=== PATIENT | female | born 1930 | race Caucasian/White ===

== ENCOUNTER 2016-09-17 08:39 | Outpatient (CLI) | payer MEDICARE, BC ==
[2015-05-13 10:57] VITALS: BMI 25.6
[~2016-09-17 08:39] MED LIST: AMBIEN5 MG PO; ATIVAN0.5 MG PO; CARDIZEM SR60 MG PO; ELIQUIS5 MG PO; Imdur PO; K-DUR20 MEQ PO; LANOXIN125 MCG PO; LASIX20 MG PO; PLAVIX75 MG PO; TOPROL XL25 MG PO
== END 2016-09-17 14:22 ==
LOC: D.MAMMO 08:39
DX: Z12.31 Encounter for screening mammogram for malignant neoplasm of breast (principal)

== ENCOUNTER 2016-11-16 20:02 | Emergency (ER) | payer MEDICARE, BC ==
[2015-05-13 10:57] VITALS: BMI 25.6
== END 2016-11-16 21:38 | disposition home or self-care (01) ==
LOC: D.ER 20:02
DX: S93.402A Sprain of unspecified ligament of left ankle, initial encounter (principal); W19.XXXA Unspecified fall, initial encounter; Y93.89 Activity, other specified; Y92.89 Other specified places as the place of occurrence of the external cause; I10 Essential (primary) hypertension; Z99.81 Dependence on supplemental oxygen

== ENCOUNTER → 2018-08-31 21:23 | Outpatient (CLI) | payer MEDICARE, BC ==
[2015-05-13 10:57] VITALS: BMI 25.6
== END | disposition home or self-care (01) ==
LOC: D.LABREF 21:23
PROVIDERS: ATTEND Urology
DX: R31.9 Hematuria, unspecified (principal); D72.829 Elevated white blood cell count, unspecified

== ENCOUNTER → 2018-09-16 18:53 | Outpatient (CLI) | payer MEDICARE, BC ==
[2015-05-13 10:57] VITALS: BMI 25.6
== END | disposition home or self-care (01) ==
LOC: D.LABREF 18:53
PROVIDERS: ATTEND Urology
DX: D72.829 Elevated white blood cell count, unspecified (principal); R31.9 Hematuria, unspecified

== ENCOUNTER → 2018-10-12 11:20 | Outpatient (CLI) | payer MEDICARE, BC ==
[2015-05-13 10:57] VITALS: BMI 25.6
== END | disposition home or self-care (01) ==
LOC: D.LABREF 11:20
PROVIDERS: ATTEND Urology
DX: R31.9 Hematuria, unspecified (principal); D72.829 Elevated white blood cell count, unspecified

== ENCOUNTER → 2018-10-20 07:36 | Outpatient (CLI) | payer MEDICARE, BC ==
[2015-05-13 10:57] VITALS: BMI 25.6
== END | disposition home or self-care (01) ==
LOC: D.CT 10-19 08:00
PROVIDERS: ATTEND Urology
DX: R31.0 Gross hematuria (principal)

== ENCOUNTER → 2018-10-28 09:34 | Outpatient (CLI) | payer MEDICARE, BC ==
[2015-05-13 10:57] VITALS: BMI 25.6
[~2018-10-28 09:34] MED LIST changes: +BACTRIM 400-801 TAB PO
[2018-10-28 10:13] LABS: BASOPHILS 0.3 % (0-2); EOSINOPHILS 2.9 % (0-7); HEMATOCRIT 37.2 % (36.0-48.0); HEMOGLOBIN 12.7 g/dL (12-16); IMMATURE GRANULOCYTES 0.7 % (0-5); LYMPHOCYTES 14.4 % (15-50); MCH 27.9 pg (26.0-34.0); MCHC 34.1 g/dL (31.0-37.0); MCV 81.8 fL (80.0-100.0); MONOCYTES 8.1 % (2-11); NEUTROPHILS 73.6 % (40-80); PLATELET COUNT 199 10x3/uL (130-400); RBC 4.55 10x6/uL (4.00-5.40); RDW 15.8 % (11.5-14.5); WBC 7.1 10x3/uL (4.8-10.8)
[2018-10-28 10:25] LABS: ANION GAP 9.8 mmol/L (8-16); CALCIUM 8.6 mg/dL (8.5-10.1); POTASSIUM - SERUM 3.8 mmol/L (3.5-5.1)
[2018-10-28 10:27] LABS: INR 1.07 (0.85-1.17); PROTIME 13.4 SECONDS (11.6-15.0)
== END | disposition home or self-care (01) ==
LOC: D.LAB 09:34
PROVIDERS: ATTEND Urology
DX: D49.4 Neoplasm of unspecified behavior of bladder (principal); R31.0 Gross hematuria

== ENCOUNTER → 2018-10-28 19:55 | Outpatient (CLI) | payer MEDICARE, BC ==
[2015-05-13 10:57] VITALS: BMI 25.6
== END | disposition home or self-care (01) ==
LOC: D.LABREF 19:55
PROVIDERS: ATTEND Urology
DX: N39.0 Urinary tract infection, site not specified (principal)

== ENCOUNTER 2018-11-05 08:17 | Inpatient (IN) | payer MEDICARE, BC ==
[~2018-11-05] VITALS: Ht 160 cm; Wt 63.0 kg
[2018-11-05 08:43] LABS: BASOPHILS 0.3 % (0-2); EOSINOPHILS 3.9 % (0-7); HEMATOCRIT 37.3 % (36.0-48.0); IMMATURE GRANULOCYTES 0.3 % (0-5); LYMPHOCYTES 12.1 % (15-50); MCH 28.8 pg (26.0-34.0); MCHC 34.9 g/dL (31.0-37.0); MCV 82.7 fL (80.0-100.0); MEAN PLATELET VOLUME 8.8 fL (7.4-10.4); MONOCYTES 5.3 % (2-11); NEUTROPHILS 78.1 % (40-80); PLATELET COUNT 168 10x3/uL (130-400); RBC 4.51 10x6/uL (4.00-5.40); RDW 15.7 % (11.5-14.5); WBC 6.4 10x3/uL (4.8-10.8)
[2018-11-05 08:53] LABS: ANION GAP 8.8 mmol/L (8-16); CALCIUM 8.9 mg/dL (8.5-10.1); CARBON DIOXIDE 31.7 mmol/L (21.0-32.0); POTASSIUM - SERUM 4.5 mmol/L (3.5-5.1)
[2018-11-05 09:06] LABS: APPEARANCE HAZY (CLEAR); BILIRUBIN NEGATIVE (NEGATIVE); COLOR YELLOW (YELLOW); GLUCOSE NEGATIVE (NEGATIVE); INR 1.14 (0.85-1.17); KETONE NEGATIVE (NEGATIVE); NITRITE NEGATIVE (NEGATIVE); PROTEIN NEGATIVE (NEGATIVE); PROTIME 14.1 SECONDS (11.6-15.0); SPECIFIC GRAVITY 1.015 (1.005-1.020)
[2018-11-05 09:07] LABS: BACTERIA FEW /hpf (NONE SEEN); EPITHELIAL CELLS 0-5 /hpf (0-5); MUCUS <1+ /lpf (NONE SEEN)
[2018-11-05] MEDS ORDERED: BAYER CHEWABLE81 MG PO (09:28)
[2018-11-05 09:50] VITALS: BP 147/79; BMI 24.6
[2018-11-05 16:40] VITALS: BP 128/74
[2018-11-05 21:35] VITALS: BP 147/79; BMI 24.6
[2018-11-05 21:48] VITALS: BP 124/56
[2018-11-06] VITALS: BP 145/59
--- NOTE | 2018-11-06 03:36 | OP ---
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 PROCEDURES: Cystoscopy and transurethral resection of bladder tumor (TURBT), 3.1 cm. 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 Single ureteral orifices bilaterally. BLOOD LOSS: Minimal. CLINICAL HISTORY: This is an 88-year-old female who is a former smoker. She was in [place] and she developed gross hematuria. Urine cultures found UTI and she was treated with antibiotics for this. She had a CT scan of abdomen and pelvis and this showed a 3.1-cm anterior bladder wall mass. She comes today to have the bladder tumor resected. SHE IS ALLERGIC TO IODINE. She was prepped with Hibiclens. DESCRIPTION OF PROCEDURE: The patient was given induction of general anesthesia in supine position. She was then placed into dorsal lithotomy position and prepped and draped. The cystoscopy was performed initially using a 17-Guyanese cystoscope with 30-degree lens. The tumor was found right at the level of the bladder neck on the anterolateral wall. It acted as a bladder outlet obstruction because it is virtually encompassing the entire bladder neck and its fronds. We then switched to the resectoscope. The bipolar resectoscope with 24-Guyanese resection loop was used. Starting from the anterior bladder wall surface, I progressively resected the tumor towards the right lateral margin. As we approached the right lateral margin, she started to develop some obturator reflexes. I asked anesthesia to give her muscle paralysis. This was done and the resection on the right lateral wall was completed without any further issues. The specimens were removed using the Ye evacuator. At the end of the procedure, there was no arterial or venous bleeding to note. No further bladder tumor specimens were floating around in the bladder. The scope was then removed. We inserted a 20-Guyanese 3-way Jauregui catheter. The balloon was inflated with 10 cc of sterile water. Straight continuous bladder irrigation with normal saline was started. She will be in the hospital until we can get her off the continuous bladder irrigation. TRANSINT:[id number] Voice Confirmation ID: [id number] DOCUMENT ID: [id number] OPERATIVE REPORT [id number] EMETERIO MACDONALD, PANCHO Kent MD at 0336 CC: [id number] DICTATION DATE: 11/05/18 1548 CNC MACHINIST 2ND SHIFT: 11/05/18 192 ADM IN [place] [id number] [place] [address]
[2018-11-06 08:25] VITALS: BP 142/62
[2018-11-06 09:41] VITALS: Ht 160 cm; Wt 63.0 kg
[2018-11-06 11:59] VITALS: BP 116/56
[2018-11-06 16:32] VITALS: BP 136/52
[2018-11-06 20:43] VITALS: BP 141/62
[2018-11-07 00:52] VITALS: BP 135/60
[2018-11-07 04:48] VITALS: BP 130/67
[2018-11-07 08:58] VITALS: BP 147/48
[2018-11-07] MEDS ORDERED: HYDROCODON-ACE1 EAC7 PO (12:44)
[2018-11-07] MEDS ORDERED: OXYBUTYNIN CHLOR5 MG PO (12:45)
--- NOTE | 2018-11-07 13:19 | MORECARE ---
CASE MANAGEMENT DISCHARGE SUMMARY PATIENT: EMETERIO MACDONALD UNIT: [id number] ADM DATE: 11/05/18 AGE: 88 : 29 SEX: F ROOM/BED: D.2224 AUTHOR: FAZAL DALY PHYSICIAN: REFERRING PHYSICIAN: PANCHO DOYLE MD DATE OF SERVICE: 11/07/18 Discharge Plan Patient Name: EMETERIO MACDONALD [facility] [facility] 1930 Planned Disposition: Home Anticipated Discharge Date: 11/07/18 Discharge Date: Expected LOS: 2 Initial Reviewer: [email or web address] Initial Review Date: 11/06/2018 Generated: 11/07/18 2:19 pm Patient Name: EMETERIO MACDONALD Page 75312 at 1319 All edits/amendments must be made on the electronic document DICTATION DATE: 11/07/18 1318 SENIOR ASSISTANT MANAGER: CARRINGTON 11/07/18 1318 RPT#: [id number] DC DATE: STATUS: ADM IN [facility] [address] [place] [address] END OF REPORT
--- NOTE | 2018-11-07 13:26 | MORECARE ---
CASE MANAGEMENT DISCHARGE SUMMARY PATIENT: EMETERIO MACDONALD UNIT: [id number] ADM DATE: 11/05/18 AGE: 88 : 29 SEX: F ROOM/BED: D.2224 AUTHOR: FAZAL DALY PHYSICIAN: REFERRING PHYSICIAN: PANCHO DOYLE MD DATE OF SERVICE: 11/07/18 Discharge Plan Patient Name: EMETERIO MACDONALD [facility] [facility] 1930 Planned Disposition: Home Anticipated Discharge Date: 11/07/18 Discharge Date: Expected LOS: 2 Initial Reviewer: [email or web address] Initial Review Date: 11/06/2018 Generated: 11/07/18 2:26 pm DCPIA - Discharge Planning Initial Assessment Updated by [id number]: Gina Barone on 11/07/18 1:22 pm * Is the patient Alert and Oriented? Yes * How many steps to enter\exit or inside your home? 2 steps * PCP DR Ribera * Pharmacy [facility] in [place], [place] primarily [employer] [facility] on [address] sometimes * Preadmission Environment Home Alone * ADLs Independent * Equipment Cane Oxygen Rolling Walker * Other Equipment Shower Chair safety bars in bath * List name and contact numbers for known caregivers / representatives who currently or will assist patient after discharge: Pamela Prescott- r- [phone] * Verbal permission to speak to the caregivers and representatives has been obtained from the patient. No * Community resources currently utilized None * Please name any agencies selected above. N/A * Additional services required to return to the preadmission environment? No * Can the patient safely return to the preadmission environment? Yes * Has this patient been hospitalized within the prior 30 days at any hospital? No Last DP export: 11/07/18 12:19 p Patient Name: EMETERIO MACDONALD Page 76428 at 1326 All edits/amendments must be made on the electronic document DICTATION DATE: 11/07/18 1325 BATHHOUSE ATTENDANT: CARRINGTON 11/07/18 1325 RPT#: [id number] DC DATE: STATUS: ADM IN [facility] [address] [place] [address] END OF REPORT
--- NOTE | 2018-11-07 13:33 | MORECARE ---
CASE MANAGEMENT DISCHARGE SUMMARY PATIENT: EMETERIO MACDONALD UNIT: [id number] ADM DATE: 11/05/18 AGE: 88 : 29 SEX: F ROOM/BED: D.2224 AUTHOR: MALIKA,DOC PHYSICIAN: REFERRING PHYSICIAN: PANCHO DOYLE MD DATE OF SERVICE: 11/07/18 Discharge Plan Patient Name: EMETERIO MACDONALD Facility: [facility]:[place] : 1930 Planned Disposition: Home Anticipated Discharge Date: 11/07/18 Discharge Date: Expected LOS: 2 Initial Reviewer: [email or web address] Initial Review Date: 11/06/2018 Generated: 11/07/18 2:33 pm Comments DCP- Discharge Planning Updated by [email or web address]: Gina Barone on 11/07/18 12:[address] CM SPOKE WITH THE PATIENT AT THE BEDSIDE. EXPLAINED MY ROLE. REQUESTED PERMISSION TO PROCEED WITH ASSESSMENT. SHE CONSENTED. THE PATIENT LIVES ALONE. HER BROTHER LIVES BEHIND HER. SHE STATES SHE FREQUENTLY VISITS WITH HER DAUGHTER IN [place]. THERE ARE 2 STEPS W/ RAIL TO ENTER HER HOME. SHE DOES NOT UTILIZE ANY HOME HEALTH OR COMMUNITY SERVICES. SHE DENIES ANY NEEDS AT THIS TIME. CM EXPLAINED IF SHE CHANGES HER MIND , HER PCP CAN ARRANGE FROM THE OFFICE. SHE WILL HAVE TRANSPORTATION TO HOME. SHE HAS HOME OXYGEN THERAPY AT NIGHT. SHE HAS A CANE, WALKER AND SHOWER CHAIR. SHE DENIES THE NEED FOR ANY ADDITIONAL DME. SHE CANNOT RECALL THE NAME OF HER DME PROVIDER. CM EXPLAINED THE IMM. DISCUSSED AND SERVED. SHE HAD NO QUESTIONS. STATES SHE IS READY TO GO HOME. SIGNATURE OBTAINED TO TWO ORIGINAL COPIES. ONE SIGNED COPY TO THE PATIENT. ONE SIGNED COPY TO THE HARD COVER CHART. DCPIA - Discharge Planning Initial Assessment Updated by [id number]: Gina Barone on 11/07/18 1:22 pm * Is the patient Alert and Oriented? Yes * How many steps to enter\exit or inside your home? 2 steps * PCP DR Ribera * Pharmacy [facility] in [place], [place] primarily [facility] [employer] on [address] sometimes * Preadmission Environment Home Alone * ADLs Independent * Equipment Cane Oxygen Rolling Walker * Other Equipment Shower Chair safety bars in bath * List name and contact numbers for known caregivers / representatives who currently or will assist patient after discharge: Pamela Prescott- r- [phone] * Verbal permission to speak to the caregivers and representatives has been obtained from the patient. No * Community resources currently utilized None * Please name any agencies selected above. N/A * Additional services required to return to the preadmission environment? No * Can the patient safely return to the preadmission environment? Yes * Has this patient been hospitalized within the prior 30 days at any hospital? No Coverage Notice Reviewer: [id number] Jeremie Barone Notice Issued Date-Time: 11/07/2018 13:00 Notice Type: IM Discharge Notice Notice Delivered To: Patient Relationship to Patient: Self Edger Operator Name: Delivery Method: HAND - Hand Delivered Becky Days: Prior Verbal Notification: Recipient Understood Notice: Yes Recipient Signature: Yes Med Rec Note Co-signed by Attending: Coverage Notice Comment: DISCHARGE IMM DISCUSSED AND SERVED. PATIENT HAD NO QUESTIONS OR CONCERNS. SIGNED COPY TO THE PATIENT AND SIGNED COPY TO THE CHART Last DP export: 11/07/18 12:26 p Patient Name: EMETERIO MACDONALD Page 97696 at 1333 All edits/amendments must be made on the electronic document DICTATION DATE: 11/07/181332 LITHOGRAPH PRESS FEEDER: CARRINGTON 11/07/181332 RPT#: [id number] DC DATE: STATUS: ADM IN [facility] [address] [place] [address] END OF REPORT
[2018-11-07 14:14] VITALS: BP 117/60
--- NOTE | 2018-11-07 16:00 | MORECARE ---
CASE MANAGEMENT DISCHARGE SUMMARY PATIENT: EMETERIO MACDONALD UNIT: [id number] ADM DATE: 11/05/18 AGE: 88 : 29 SEX: F ROOM/BED: D.2224 AUTHOR: MALIKA,DOC PHYSICIAN: REFERRING PHYSICIAN: PANCHO DOYLE MD DATE OF SERVICE: 11/07/18 Discharge Plan Patient Name: EMETERIO MACDONALD Facility: [facility]:[place] : 1930 Planned Disposition: Home Anticipated Discharge Date: 11/07/18 Discharge Date: Expected LOS: 2 Initial Reviewer: [email or web address] Initial Review Date: 11/06/2018 Generated: 11/07/18 5:00 pm Comments DCP- Discharge Planning Updated by [id number]: Gina Barone on 11/07/18 2:[address] PATIENT'S DAUGHTER IS ON SITE. THE PATIENT HAS NAMIBIAN HOMEPATIENT THE PROVIDER OF HER STATIONARY OXYGEN UNIT. ROOM AIR OXYGEN SATS AT REST 82%. OXYGEN APPLIED VIA NASAL CANNULA AT 4/L AND O2 SAT CITLALI TO 94% PRIMARY NURSE, LIONEL, NOTIFIED DR DOYLE. WILL ATTEMPT TO GET FP CONSULT REGARDING RESPIRATORY STATUS. CM SPOKE W/ PAWEL, DRIER UNLOADER, WITH NAMIBIAN HOMEPATIENT. WILL NEED APPROPRIATE MD SIGNATURE TO OBTAIN A PORTABLE UNIT. DISCISSED W/ WAREHOUSE PRODUCTION WORKER AND PRIMARY NURSE. PATIENT CXR PRIOR TO SURGERY WAS CLEAR. NO CXR SINCE SURGERY. DCP- Discharge Planning Updated by [id number]: Gina Barone on 11/07/18 12:[address] CM SPOKE WITH THE PATIENT AT THE BEDSIDE. EXPLAINED MY ROLE. REQUESTED PERMISSION TO PROCEED WITH ASSESSMENT. SHE CONSENTED. THE PATIENT LIVES ALONE. HER BROTHER LIVES BEHIND HER. SHE STATES SHE FREQUENTLY VISITS WITH HER DAUGHTER IN [place]. THERE ARE 2 STEPS W/ RAIL TO ENTER HER HOME. SHE DOES NOT UTILIZE ANY HOME HEALTH OR COMMUNITY SERVICES. SHE DENIES ANY NEEDS AT THIS TIME. DALTON EXPLAINED IF SHE CHANGES HER MIND , HER PCP CAN ARRANGE FROM THE OFFICE. SHE WILL HAVE TRANSPORTATION TO HOME. SHE HAS HOME OXYGEN THERAPY AT NIGHT. SHE HAS A CANE, WALKER AND SHOWER CHAIR. SHE DENIES THE NEED FOR ANY ADDITIONAL DME. SHE CANNOT RECALL THE NAME OF HER DME PROVIDER. DALTON EXPLAINED THE IMM. DISCUSSED AND SERVED. SHE HAD NO QUESTIONS. STATES SHE IS READY TO GO HOME. SIGNATURE OBTAINED TO TWO ORIGINAL COPIES. ONE SIGNED COPY TO THE PATIENT. ONE SIGNED COPY TO THE HARD COVER CHART. DCPIA - Discharge Planning Initial Assessment Updated by [email or web address]: Gina Barone on 11/07/18 1:22 pm * Is the patient Alert and Oriented? Yes * How many steps to enter\exit or inside your home? 2 steps * PCP DR Ribera * Pharmacy [facility] in [place], [place] primarily [employer] [address] sometimes * Preadmission Environment Home Alone * ADLs Independent * Equipment Cane Oxygen Rolling Walker * Other Equipment Shower Chair safety bars in bath * List name and contact numbers for known caregivers / representatives who currently or will assist patient after discharge: Pamela Prescott- r- [phone] * Verbal permission to speak to the caregivers and representatives has been obtained from the patient. No * Community resources currently utilized None * Please name any agencies selected above. N/A * Additional services required to return to the preadmission environment? No * Can the patient safely return to the preadmission environment? Yes * Has this patient been hospitalized within the prior 30 days at any hospital? No Coverage Notice Reviewer: [id number] - Gina Barone Notice Issued Date-Time: 11/07/2018 13:00 Notice Type: IM Discharge Notice Notice Delivered To: Patient Relationship to Patient: Self Retort Furnace Operator Name: Delivery Method: HAND - Hand Delivered Becky Days: Prior Verbal Notification: Recipient Understood Notice: Yes Recipient Signature: Yes Med Rec Note Co-signed by Attending: Coverage Notice Comment: DISCHARGE IMM DISCUSSED AND SERVED. PATIENT HAD NO QUESTIONS OR CONCERNS. SIGNED COPY TO THE PATIENT AND SIGNED COPY TO THE CHART Last DP export: 11/07/18 12:33 p Patient Name: EMETERIO MACDONALD Page 06102 at 1600 All edits/amendments must be made on the electronic document DICTATION DATE: 11/07/181558 SUPERVISOR HOT DIP TINNING: CARRINGTON 11/07/181558 RPT#: [id number] DC DATE: STATUS: ADM IN [facility] [address] [place] [address] END OF REPORT
[2018-11-07 17:27] VITALS: BP 148/60
--- NOTE | 2018-11-07 19:13 | MORECARE ---
CASE MANAGEMENT DISCHARGE SUMMARY PATIENT: EMETERIO MACDONALD UNIT: [id number] ADM DATE: 11/05/18 AGE: 88 : 29 SEX: F ROOM/BED: D.2224 AUTHOR: MALIKA,DOC PHYSICIAN: REFERRING PHYSICIAN: PANCHO DOYLE MD DATE OF SERVICE: 11/07/18 Discharge Plan Patient Name: EMETERIO MACDONALD Facility: [facility]:[place] : 1930 Planned Disposition: Home Anticipated Discharge Date: 11/07/18 Discharge Date: Expected LOS: 2 Initial Reviewer: [email or web address] Initial Review Date: 11/06/2018 Generated: 11/07/18 8:12 pm Comments DCP- Discharge Planning Updated by [id number]: Gina Barone on 11/07/18 6:[address] LATE ENTRY 1600 THE PATIENT SPIKED A TEMP 100.9. HER REPEAT ROOM AIR RESTING OXYGEN SAT READING WAS 82%. CXR WAS ORDERED. DISCHARGE HELD. DCP- Discharge Planning Updated by [email or web address]: Gina Barone on 11/07/18 2:[address] PATIENT'S DAUGHTER IS ON SITE. THE PATIENT HAS BENINESE HOMEPATIENT THE PROVIDER OF HER STATIONARY OXYGEN UNIT. ROOM AIR OXYGEN SATS AT REST 82%. OXYGEN APPLIED VIA NASAL CANNULA AT 4/L AND O2 SAT CITLALI TO 94% PRIMARY NURSE, LIONEL, NOTIFIED DR DOYLE. WILL ATTEMPT TO GET FP CONSULT REGARDING RESPIRATORY STATUS. CM SPOKE W/ PAWEL, SHEET METAL SUPERINTENDENT, WITH BENINESE HOMEPATIENT. WILL NEED APPROPRIATE MD SIGNATURE TO OBTAIN A PORTABLE UNIT. DISCISSED W/ CITIZENSHIP INSTRUCTOR AND PRIMARY NURSE. PATIENT CXR PRIOR TO SURGERY WAS CLEAR. NO CXR SINCE SURGERY. DCP- Discharge Planning Updated by [email or web address]: Gina Barone on 11/07/18 12:[address] CM SPOKE WITH THE PATIENT AT THE BEDSIDE. EXPLAINED MY ROLE. REQUESTED PERMISSION TO PROCEED WITH ASSESSMENT. SHE CONSENTED. THE PATIENT LIVES ALONE. HER BROTHER LIVES BEHIND HER. SHE STATES SHE FREQUENTLY VISITS WITH HER DAUGHTER IN [place]. THERE ARE 2 STEPS W/ RAIL TO ENTER HER HOME. SHE DOES NOT UTILIZE ANY HOME HEALTH OR COMMUNITY SERVICES. SHE DENIES ANY NEEDS AT THIS TIME. DALTON EXPLAINED IF SHE CHANGES HER MIND , HER PCP CAN ARRANGE FROM THE OFFICE. SHE WILL HAVE TRANSPORTATION TO HOME. SHE HAS HOME OXYGEN THERAPY AT NIGHT. SHE HAS A CANE, WALKER AND SHOWER CHAIR. SHE DENIES THE NEED FOR ANY ADDITIONAL DME. SHE CANNOT RECALL THE NAME OF HER DME PROVIDER. CM EXPLAINED THE IMM. DISCUSSED AND SERVED. SHE HAD NO QUESTIONS. STATES SHE IS READY TO GO HOME. SIGNATURE OBTAINED TO TWO ORIGINAL COPIES. ONE SIGNED COPY TO THE PATIENT. ONE SIGNED COPY TO THE HARD COVER CHART. DCPIA - Discharge Planning Initial Assessment Updated by [id number]: Gina Barone on 11/07/18 1:22 pm * Is the patient Alert and Oriented? Yes * How many steps to enter\exit or inside your home? 2 steps * PCP DR Ribera * Pharmacy [facility] in [facility] [employer] [address] * Preadmission Environment Home Alone * ADLs Independent * Equipment Cane Oxygen Rolling Walker * Other Equipment Shower Chair safety bars in bath * List name and contact numbers for known caregivers / representatives who currently or will assist patient after discharge: Pamela Prescott- r- [phone] * Verbal permission to speak to the caregivers and representatives has been obtained from the patient. No * Community resources currently utilized None * Please name any agencies selected above. N/A * Additional services required to return to the preadmission environment? No * Can the patient safely return to the preadmission environment? Yes * Has this patient been hospitalized within the prior 30 days at any hospital? No Coverage Notice Reviewer: [id number] - Gina Barone Notice Issued Date-Time: 11/07/2018 13:00 Notice Type: IM Discharge Notice Notice Delivered To: Patient Relationship to Patient: Self Agricultural Services Director Name: Delivery Method: HAND - Hand Delivered Becky Days: Prior Verbal Notification: Recipient Understood Notice: Yes Recipient Signature: Yes Med Rec Note Co-signed by Attending: Coverage Notice Comment: DISCHARGE IMM DISCUSSED AND SERVED. PATIENT HAD NO QUESTIONS OR CONCERNS. SIGNED COPY TO THE PATIENT AND SIGNED COPY TO THE CHART Last DP export: 11/07/18 3:00 p Patient Name: EMETERIO MACDONALD Page 98521 at 1913 All edits/amendments must be made on the electronic document DICTATION DATE: 11/07/181911 LINOLEUM LAYER HELPER: CARRINGTON 11/07/181911 RPT#: [id number] DC DATE: STATUS: ADM IN [facility] [address] [place] [address] END OF REPORT
[2018-11-07 20:18] VITALS: BP 149/59
[2018-11-08 00:37] VITALS: BP 142/79
[2018-11-08 05:34] VITALS: BP 132/52
[2018-11-08 08:30] VITALS: BP 145/47
[2018-11-08 13:20] VITALS: BP 156/68
[2018-11-08 16:12] VITALS: BP 145/53
[2018-11-08 20:33] VITALS: BP 137/48
[2018-11-09 00:57] VITALS: BP 136/50
[2018-11-09 09:11] VITALS: BP 156/57
--- NOTE | 2018-11-09 09:30 | MORECARE ---
CASE MANAGEMENT DISCHARGE SUMMARY PATIENT: EMETERIO MACDONALD UNIT: [id number] ADM DATE: 11/05/18 AGE: 88 : 29 SEX: F ROOM/BED: D.2224 AUTHOR: MALIKA,DOC PHYSICIAN: REFERRING PHYSICIAN: PANCHO DOYLE MD DATE OF SERVICE: 11/09/18 Discharge Plan Patient Name: EMETERIO MACDONALD Facility: [facility]:[place] : 1930 Planned Disposition: Home Anticipated Discharge Date: 11/07/18 Discharge Date: Expected LOS: 2 Initial Reviewer: [id number] Initial Review Date: 11/06/2018 Generated: 11/09/18 10:29 am Comments DCP- Discharge Planning Updated by [email or web address]: Adri Zamora on 11/09/18 8:[address] ITALIAN HOMEPATIENT NEEDING ORDER FOR PORTABLE O2 FOR DC DCP- Discharge Planning Updated by [email or web address]: Gina Barone on 11/07/18 6:[address] LATE ENTRY 1600 THE PATIENT SPIKED A TEMP 100.9. HER REPEAT ROOM AIR RESTING OXYGEN SAT READING WAS 82%. CXR WAS ORDERED. DISCHARGE HELD. DCP- Discharge Planning Updated by [email or web address]: Gina Barone on 11/07/18 2:[address] PATIENT'S DAUGHTER IS ON SITE. THE PATIENT HAS ITALIAN HOMEPATIENT THE PROVIDER OF HER STATIONARY OXYGEN UNIT. ROOM AIR OXYGEN SATS AT REST 82%. OXYGEN APPLIED VIA NASAL CANNULA AT 4/L AND O2 SAT CITLALI TO 94% PRIMARY NURSE, LIONEL, NOTIFIED DR DOYLE. WILL ATTEMPT TO GET FP CONSULT REGARDING RESPIRATORY STATUS. CM SPOKE W/ PAWEL, SPACE AND MISSILE DEFENSE OPERATIONS, WITH ITALIAN HOMEPATIENT. WILL NEED APPROPRIATE MD SIGNATURE TO OBTAIN A PORTABLE UNIT. DISCISSED W/ WING MAILER MACHINE OPERATOR AND PRIMARY NURSE. PATIENT CXR PRIOR TO SURGERY WAS CLEAR. NO CXR SINCE SURGERY. DCP- Discharge Planning Updated by [id number]: Gina Barone on 11/07/18 12:[address] CM SPOKE WITH THE PATIENT AT THE BEDSIDE. EXPLAINED MY ROLE. REQUESTED PERMISSION TO PROCEED WITH ASSESSMENT. SHE CONSENTED. THE PATIENT LIVES ALONE. HER BROTHER LIVES BEHIND HER. SHE STATES SHE FREQUENTLY VISITS WITH HER DAUGHTER IN [place]. THERE ARE 2 STEPS W/ RAIL TO ENTER HER HOME. SHE DOES NOT UTILIZE ANY HOME HEALTH OR COMMUNITY SERVICES. SHE DENIES ANY NEEDS AT THIS TIME. CM EXPLAINED IF SHE CHANGES HER MIND , HER PCP CAN ARRANGE FROM THE OFFICE. SHE WILL HAVE TRANSPORTATION TO HOME. SHE HAS HOME OXYGEN THERAPY AT NIGHT. SHE HAS A CANE, WALKER AND SHOWER CHAIR. SHE DENIES THE NEED FOR ANY ADDITIONAL DME. SHE CANNOT RECALL THE NAME OF HER DME PROVIDER. CM EXPLAINED THE IMM. DISCUSSED AND SERVED. SHE HAD NO QUESTIONS. STATES SHE IS READY TO GO HOME. SIGNATURE OBTAINED TO TWO ORIGINAL COPIES. ONE SIGNED COPY TO THE PATIENT. ONE SIGNED COPY TO THE HARD COVER CHART. DCPIA - Discharge Planning Initial Assessment Updated by [id number]: Gina Barone on 11/07/18 1:22 pm * Is the patient Alert and Oriented? Yes * How many steps to enter\exit or inside your home? 2 steps * PCP DR Ribera * Pharmacy [facility] [place] [facility] [address] [place] * Preadmission Environment Home Alone * ADLs Independent * Equipment Cane Oxygen Rolling Walker * Other Equipment Shower Chair safety bars in bath * List name and contact numbers for known caregivers / representatives who currently or will assist patient after discharge: Pamela Prescott- r- [phone] * Verbal permission to speak to the caregivers and representatives has been obtained from the patient. No * Community resources currently utilized None * Please name any agencies selected above. N/A * Additional services required to return to the preadmission environment? No * Can the patient safely return to the preadmission environment? Yes * Has this patient been hospitalized within the prior 30 days at any hospital? No Coverage Notice Reviewer: [id number] - Gina Barone Notice Issued Date-Time: 11/07/2018 13:00 Notice Type: IM Discharge Notice Notice Delivered To: Patient Relationship to Patient: Self Blister Packaging Machine Operator Name: Delivery Method: HAND - Hand Delivered Becky Days: Prior Verbal Notification: Recipient Understood Notice: Yes Recipient Signature: Yes Med Rec Note Co-signed by Attending: Coverage Notice Comment: DISCHARGE IMM DISCUSSED AND SERVED. PATIENT HAD NO QUESTIONS OR CONCERNS. SIGNED COPY TO THE PATIENT AND SIGNED COPY TO THE CHART Last DP export: 11/07/18 6:13 p Patient Name: EMETERIO MACDONALD Page 37101 at 0930 All edits/amendments must be made on the electronic document DICTATION DATE: 11/09/18928 BENCH WORKER APPRENTICE: CARRINGTON 11/09/18928 RPT#: [id number] DC DATE: STATUS: ADM IN [facility] [address] [place] [address] END OF REPORT
[2018-11-09 11:52] VITALS: BP 128/62
== END 2018-11-09 16:23 | disposition home or self-care (01) | DRG 669 ==
LOC: D.OPS 08:17 → D.MS 08:17 → D.PAN 09:35 → D.OPS 10:45 → D.PAN 11:15 → D.OPS 11:15 → D.MS 16:24 → D.OPS 16:25 → D.MS 16:26
PROVIDERS: ADMIT Urology; ATTEND Urology
PROC: 0TBB8ZZ Excision of Bladder, Via Natural or Artificial Opening Endoscopic (ICD-10-PCS; principal; 2018-11-05 11:15)
DX: C67.9 Malignant neoplasm of bladder, unspecified (principal); J98.11 Atelectasis; J44.9 Chronic obstructive pulmonary disease, unspecified

== ENCOUNTER 2018-11-10 20:37 | Emergency (ER) | payer MEDICARE, BC ==
[~2018-11-10] VITALS: Ht 160 cm; Wt 63.6 kg
[~2018-11-10 20:37] MED LIST changes: +BAYER CHEWABLE81 MG PO; +HYDROCODON-ACE1 EAC7 PO; +OXYBUTYNIN CHLOR5 MG PO
[2018-11-10 21:15] VITALS: Ht 160 cm; Wt 63.6 kg
[2018-11-10 23:21] LABS: BASOPHILS 0.3 % (0-2); EOSINOPHILS 3.6 % (0-7); HEMATOCRIT 36.3 % (36.0-48.0); HEMOGLOBIN 12.2 g/dL (12-16); IMMATURE GRANULOCYTES 0.1 % (0-5); LYMPHOCYTES 14.3 % (15-50); MCH 27.7 pg (26.0-34.0); MCHC 33.6 g/dL (31.0-37.0); MCV 82.5 fL (80.0-100.0); MEAN PLATELET VOLUME 9.1 fL (7.4-10.4); MONOCYTES 6.5 % (2-11); NEUTROPHILS 75.2 % (40-80); PLATELET COUNT 177 10x3/uL (130-400); RDW 15.2 % (11.5-14.5); WBC 6.9 10x3/uL (4.8-10.8)
[2018-11-10 23:34] LABS: ALBUMIN 3.3 g/dL (3.4-5.0); ANION GAP 10.4 mmol/L (8-16); BILIRUBIN - TOTAL 0.84 mg/dL (0.2-1.3); CARBON DIOXIDE 32.7 mmol/L (21.0-32.0); CREATININE - SERUM 0.8 mg/dL (0.6-1.3); POTASSIUM - SERUM 4.1 mmol/L (3.5-5.1); PROTEIN - SERUM 7.4 g/dL (6.4-8.2)
[2018-11-10 23:42] LABS: APPEARANCE CLOUDY (CLEAR); BILIRUBIN NEGATIVE (NEGATIVE); COLOR YELLOW (YELLOW); GLUCOSE NEGATIVE (NEGATIVE); KETONE NEGATIVE (NEGATIVE); NITRITE POSITIVE (NEGATIVE); PROTEIN 3+ mg/dL (NEGATIVE); SPECIFIC GRAVITY 1.015 (1.005-1.020); UROBILINOGEN NORMAL (NORMAL)
[2018-11-10 23:43] LABS: BACTERIA MANY /hpf (NONE SEEN); EPITHELIAL CELLS 0-5 /hpf (0-5); YEAST >1+ WITH HYPHAE /hpf (NONE SEEN)
[2018-11-11 00:05] VITALS: BP 187/80
== END 2018-11-11 00:05 | disposition home or self-care (01) ==
LOC: D.ER 20:37
PROVIDERS: Family Medicine
DX: T83.038A Leakage of other urinary catheter, initial encounter (principal); Y84.9 Medical procedure, unspecified as the cause of abnormal reaction of the patient, or of later complication, without mention of misadventure at the time of the procedure; I11.0 Hypertensive heart disease with heart failure; I50.9 Heart failure, unspecified

== ENCOUNTER 2018-11-20 11:58 | Emergency (ER) | payer MEDICARE, BC ==
[~2018-11-20] VITALS: Ht 160 cm; Wt 63.6 kg
[2018-11-20 12:03] VITALS: Ht 160 cm; Wt 63.6 kg
[2018-11-20 13:00] LABS: APPEARANCE TURBID (CLEAR); BACTERIA MODERATE /hpf (NONE SEEN); BILIRUBIN NEGATIVE (NEGATIVE); COLOR RED (YELLOW); EPITHELIAL CELLS RARE /hpf (0-5); GLUCOSE NEGATIVE (NEGATIVE); KETONE NEGATIVE (NEGATIVE); NITRITE NEGATIVE (NEGATIVE); PROTEIN 2+ mg/dL (NEGATIVE); RED CELLS - URINE >50 /hpf (0-5); SPECIFIC GRAVITY 1.015 (1.005-1.020); WHITE CELLS - URINE 0-5 /hpf (0-5)
[2018-11-20 13:01] LABS: MUCUS <1+ /lpf (NONE SEEN)
[2018-11-20 13:08] LABS: ALBUMIN 3.3 g/dL (3.4-5.0); ANION GAP 9.3 mmol/L (8-16); BILIRUBIN - TOTAL 0.85 mg/dL (0.2-1.3); CALCIUM 8.6 mg/dL (8.5-10.1); CARBON DIOXIDE 34.3 mmol/L (21.0-32.0); CREATININE - SERUM 0.9 mg/dL (0.6-1.3); POTASSIUM - SERUM 3.6 mmol/L (3.5-5.1); PROTEIN - SERUM 7.2 g/dL (6.4-8.2)
[2018-11-20 13:17] LABS: BASOPHILS 0.2 % (0-2); HEMATOCRIT 36.3 % (36.0-48.0); HEMOGLOBIN 12.1 g/dL (12-16); IMMATURE GRANULOCYTES 0.6 % (0-5); LYMPHOCYTES 12.3 % (15-50); MCH 27.3 pg (26.0-34.0); MCHC 33.3 g/dL (31.0-37.0); MCV 81.8 fL (80.0-100.0); MEAN PLATELET VOLUME 9.2 fL (7.4-10.4); MONOCYTES 4.6 % (2-11); NEUTROPHILS 80.3 % (40-80); RBC 4.44 10x6/uL (4.00-5.40); WBC 8.4 10x3/uL (4.8-10.8)
[2018-11-20 13:26] LABS: PLATELET COUNT 255 10x3/uL (130-400)
[2018-11-20 14:53] VITALS: BP 148/68
== END 2018-11-20 14:54 | disposition home or self-care (01) ==
LOC: D.ER 11:58
PROVIDERS: Family Medicine
DX: R33.9 Retention of urine, unspecified (principal); I10 Essential (primary) hypertension; J44.9 Chronic obstructive pulmonary disease, unspecified

== ENCOUNTER → 2019-01-20 20:14 | Outpatient (CLI) | payer MEDICARE, BC ==
[2018-11-20 12:03] VITALS: BMI 24.8
[~2019-01-20 20:14] MED LIST changes: +CIPRO500 MG PO
== END | disposition home or self-care (01) ==
LOC: D.LABREF 20:14
PROVIDERS: ATTEND Urology
DX: D72.829 Elevated white blood cell count, unspecified (principal)

== ENCOUNTER → 2019-02-03 20:47 | Outpatient (CLI) | payer MEDICARE, BC ==
[2018-11-20 12:03] VITALS: BMI 24.8
== END | disposition home or self-care (01) ==
LOC: D.LABREF 20:47
PROVIDERS: ATTEND Urology
DX: R31.9 Hematuria, unspecified (principal)

== ENCOUNTER 2019-02-13 22:08 | Inpatient (IN) | payer MEDICARE, BC ==
[~2019-02-13] VITALS: Ht 160 cm; Wt 63.5 kg
[~2019-02-13 22:08] MED LIST changes: -CIPRO500 MG PO
[2019-02-13] MEDS ORDERED: CIPRO500 MG PO (22:17)
[2019-02-13 22:39] LABS: BASOPHILS 0.3 % (0-2); EOSINOPHILS 3.2 % (0-7); HEMATOCRIT 39.7 % (36.0-48.0); HEMOGLOBIN 12.9 g/dL (12-16); IMMATURE GRANULOCYTES 0.4 % (0-5); LYMPHOCYTES 17.7 % (15-50); MCHC 32.5 g/dL (31.0-37.0); MCV 86.3 fL (80.0-100.0); MEAN PLATELET VOLUME 9.5 fL (7.4-10.4); MONOCYTES 5.8 % (2-11); NEUTROPHILS 72.6 % (40-80); PLATELET COUNT 210 10x3/uL (130-400); RDW 16.1 % (11.5-14.5); WBC 7.8 10x3/uL (4.8-10.8)
[2019-02-13 22:49] LABS: ANION GAP 13.1 mmol/L (8-16); CALCIUM 9.1 mg/dL (8.5-10.1); CARBON DIOXIDE 28.9 mmol/L (21.0-32.0); CREATININE - SERUM 0.9 mg/dL (0.6-1.3); INR 1.1 (0.85-1.17); PROTIME 13.7 SECONDS (11.6-15.0)
[2019-02-13 23:01] LABS: ALBUMIN 3.6 g/dL (3.4-5.0); BILIRUBIN - TOTAL 1.98 mg/dL (0.2-1.3); PROTEIN - SERUM 8.5 g/dL (6.4-8.2); TROPONIN-I 0.021 ng/mL (0.000-0.060)
[2019-02-14] VITALS (7 sets, daily range): BP systolic 169–199; BP diastolic 70–89; BMI 24.8
--- NOTE | 2019-02-14 00:13 | NUR ---
RECEIVED TO ROOM VIA WHEELCHAIR FROM ER.ALERT.ORIENTED. O2 @ 2L PER NC ON.NO DISTRESS NOTED. SL TO LEFT HAND INTACT WITHOUT REDNESS OR EDEMA NOTED. ORIENTED TO ROOM. CL IN REACH
--- NOTE | 2019-02-14 00:14 | NUR ---
ADMISSION ASSESSMENT COMPLETE. PT ON WAIT LIST FOR HOT PIPE GAUGER.
--- NOTE | 2019-02-14 00:22 | NUR ---
PROGRAM DIRECTOR CABLE TELEVISION PLACED ON PT.
--- NOTE | 2019-02-14 06:55 | NUR ---
ALERT AND ORIENTED, RESTING IN BED. NO S/O PAIN. NO S/S OF ACUTE DISTRESS NOTED. ON 2L O2, NC. UP WITH ASSIST. IV TO LEFT HAND, SL. SITE PATENT WITHOUT REDNESS OR SWELLING. TELEMETRY 96 CONTROLLED AFIB. PACEMAKER. DENIES ANY NEEDS AT THIS TIME. CALL LIGHT IN REACH. WILL CONTINUE TO MONITOR.
--- NOTE | 2019-02-14 10:26 | NUR ---
I have reviewed this patient and I concur with the Shift Assessment completed by the Licensed Practical Nurse today this shift.
[2019-02-14 15:21] LABS: CKMB 0.9 U/L (0.0-3.6); CREATINE KINASE 46 UL (21-215); TROPONIN-I 0.023 ng/mL (0.000-0.060)
[2019-02-14 16:55] LABS: APPEARANCE CLEAR (CLEAR); BILIRUBIN NEGATIVE (NEGATIVE); COLOR STRAW (YELLOW); GLUCOSE NEGATIVE (NEGATIVE); KETONE NEGATIVE (NEGATIVE); NITRITE NEGATIVE (NEGATIVE); PROTEIN NEGATIVE (NEGATIVE); UROBILINOGEN NORMAL (NORMAL)
--- NOTE | 2019-02-14 19:27 | NUR ---
PATIENT RESTING IN BED WITH NO S/S OF DISTRESS. PATIENT REQUESTED AMBIEN WITH NIGHT MEDS. PATIENT DENIES OTHER NEEDS AT THIS TIME. BED IN LOWEST POSITION AND CALL LIGHT WITHIN REACH. ENCOURAGED THE PATIENT TO CALL IF SHE HAS NEEDS. WILL CONTINUE TO MONITOR.
[2019-02-14 20:29] LABS: CKMB 0.9 U/L (0.0-3.6); CREATINE KINASE 45 UL (21-215); TROPONIN-I 0.021 ng/mL (0.000-0.060)
[2019-02-15] VITALS (7 sets, daily range): BP systolic 140–206; BP diastolic 70–100; Ht 160 cm; Wt 63.5 kg
[2019-02-15 02:31] LABS: BASOPHILS 0.5 % (0-2); EOSINOPHILS 4.9 % (0-7); HEMATOCRIT 37.4 % (36.0-48.0); HEMOGLOBIN 12.2 g/dL (12-16); IMMATURE GRANULOCYTES 0.4 % (0-5); LYMPHOCYTES 24.3 % (15-50); MCH 27.8 pg (26.0-34.0); MCHC 32.6 g/dL (31.0-37.0); MCV 85.2 fL (80.0-100.0); MEAN PLATELET VOLUME 9.2 fL (7.4-10.4); NEUTROPHILS 61.9 % (40-80); PLATELET COUNT 194 10x3/uL (130-400); RBC 4.39 10x6/uL (4.00-5.40); RDW 15.7 % (11.5-14.5); WBC 5.5 10x3/uL (4.8-10.8)
[2019-02-15 02:54] LABS: CALC OSMOLALITY 279 mosm/kg (275-300); CALCIUM 8.6 mg/dL (8.5-10.1); CARBON DIOXIDE 34.3 mmol/L (21.0-32.0); CHLORIDE - SERUM 102 mmol/L (98-107); CKMB 0.5 U/L (0.0-3.6); CREATINE KINASE 45 UL (21-215); CREATININE - SERUM 0.9 mg/dL (0.6-1.3); GLUCOSE 97 mg/dL (74-106); MAGNESIUM - SERUM 1.8 mg/dL (1.8-2.4); POTASSIUM - SERUM 4.1 mmol/L (3.5-5.1); SODIUM 139 mmol/L (136-145); TROPONIN-I 0.024 ng/mL (0.000-0.060); UREA NITROGEN 17 mg/dL (7-18); eGFR NON AFRICAN AMERICAN 62 mL/min (90-120)
--- NOTE | 2019-02-15 10:09 | NUR ---
PT ALERT X 4. BREATH SOUNDS DIMINISHED TO RIGHT SIDE, 2L O2 PER NC. TELEMETRY IN PLACE. IV TO LEFT HAND, PATENT, DRESSING CDI. PT REPORTING NO PAIN OR SOB AT THIS TIME. BED LOW, CALL LIGHT IN REACH. NO OTHER NEEDS AT THIS TIME.
--- NOTE | 2019-02-15 21:30 | NUR ---
MEY NUNEZ IN REGARDS TO PATIENT'S ELEVATED BP
--- NOTE | 2019-02-15 22:20 | NUR ---
PATIENT RESTING IN BED WITH NO S/S OF DISTRESS AND DENIES NEEDS AT THIS TIME. BED IN LOWEST POSITION AND CALL LIGHT WITHIN REACH. ENCOURAGED THE PATIENT TO CALL IF SHE HAS NEEDS. WILL CONTINUE TO MONITOR.
--- NOTE | 2019-02-15 23:15 | NUR ---
CALLED BUTTON TACKER TO PULL CLONIDINE
[2019-02-16 05:17] VITALS: BP 164/67
[2019-02-16 06:28] LABS: BASOPHILS 0.4 % (0-2); HEMATOCRIT 35.1 % (36.0-48.0); HEMOGLOBIN 11.4 g/dL (12-16); IMMATURE GRANULOCYTES 0.4 % (0-5); LYMPHOCYTES 23.8 % (15-50); MCH 27.6 pg (26.0-34.0); MCHC 32.5 g/dL (31.0-37.0); MEAN PLATELET VOLUME 10.1 fL (7.4-10.4); MONOCYTES 7.1 % (2-11); NEUTROPHILS 64.3 % (40-80); PLATELET COUNT 205 10x3/uL (130-400); RBC 4.13 10x6/uL (4.00-5.40); RDW 15.7 % (11.5-14.5); WBC 5.5 10x3/uL (4.8-10.8)
[2019-02-16 06:38] LABS: ANION GAP 9.1 mmol/L (8-16); CALCIUM 8.8 mg/dL (8.5-10.1); CARBON DIOXIDE 32.6 mmol/L (21.0-32.0); CREATININE - SERUM 0.8 mg/dL (0.6-1.3); MAGNESIUM - SERUM 1.9 mg/dL (1.8-2.4); POTASSIUM - SERUM 3.7 mmol/L (3.5-5.1)
[2019-02-16 08:01] VITALS: BP 165/80
--- NOTE | 2019-02-16 08:46 | NUR ---
AM MEDS GIVEN AT THIS TIME. ALSO HELPED PT TO BATHROOM AND BACK TO BED. PT A/O X4, RESP EVEN AND NONLABORED ON 2L. LT HAND IV SL. PT DENIES ANY NEEDS AT TIME, CALL LIGHT IN REACH, NAD NOTED, WILL CONTINUE TO MONITOR.
--- NOTE | 2019-02-16 11:26 | NUR ---
ASKED PT IF SHE WANTED TO GET A FLU SHOT TODAY AND PT REFUSED, STATED THAT SHE WOULD WAIT TO GET ONE IN HER PCP OFFICE.
--- NOTE | 2019-02-16 11:37 | NUR ---
PROVIDED VERBAL AND WRITTEN DISCHARGE TEACHING TO PT, WHO VERBALIZED UNDERSTANDING REGARDING TEACHING. REMOVED HEART MONITOR. PT WAITING ON RIDE, WILL NOTIFY NURSE WHEN READY FOR WHEELCHAIR. PT DENIES ANY NEEDS AT THIS, CALL LIGHT IN REACH, NAD NOTED, WILL CONTINUE TO MONITOR.
--- NOTE | 2019-02-16 15:31 | NUR ---
PT LEFT UNIT VIA WHEELCHAIR, WITH ALL BELONGINGS, ACCCOMPANIED BY DAUGHTER, NAD NOTED.
--- NOTE | 2019-02-16 15:59 | MORECARE ---
CASE MANAGEMENT DISCHARGE SUMMARY PATIENT: EMETERIO MACDONALD UNIT: [id number] ADM DATE: 02/14/19 AGE: 88 : [birth year] SEX: F ROOM/BED: D.1205 AUTHOR: MALIKA,DOC PHYSICIAN: REFERRING PHYSICIAN: BLANCA HUMPHRIES MD DATE OF SERVICE: 02/16/19 Discharge Plan Patient Name: EMETERIO MACDONALD Facility: [facility]:[place] : 1930 Planned Disposition: Home Anticipated Discharge Date: Discharge Date: 02/16/2019 Expected LOS: Initial Reviewer: [email or web address] Initial Review Date: 02/14/2019 Generated: 02/16/19 4:59 pm Comments DCP- Discharge Planning Updated by [email or web address]: Kenya Olvera on 02/16/19 2:[address] Patient Name: EMETERIO MACDONALD Admission Status: ER Accout number: [id number] Admission Date: 02-14-2019 : 1930 Admission Diagnosis: Attending: BLANCA HUMPHRIES Current LOS: 2 Anticipated DC Date: Planned Disposition: Home Primary Insurance: MEDICARE A & B Discharge Planning Comments: CM met with patient to complete initial dc planning assessment. CM educated patient on the CM role and verbal consent given by patient to complete assessment. Patient lives at home alone where she is independent with her care. At discharge patient plans to return home and feels this is a safe discharge. CM discussed availability of home health, rehab services, and medical equipment. Her daughter will be her certified driver examiner home. Patient has home o2 and portable ( [facility] home patient ) Patient denied known discharge needs at this time. CM will continue to follow and will assist as needed with dc plans/needs. Residential Energy Auditor: Kenya Olvera DCPIA - Discharge Planning Initial Assessment Updated by [email or web address]: Kenya Olvera on 02/16/19 3:53 pm * Is the patient Alert and Oriented? Yes * How many steps to enter\exit or inside your home? * PCP [facility] * [facility] * Preadmission Environment Home Alone * ADLs Independent * Other Equipment HOME / PORTABLE 02 - [facility] PAT[facility], WALKER, CANE * List name and contact numbers for known caregivers / representatives who currently or will assist patient after discharge: NAE GLOVER - DAUGHTER - [phone] * Verbal permission to speak to the caregivers and representatives has been obtained from the patient. No * Community resources currently utilized None * Additional services required to return to the preadmission environment? No * Can the patient safely return to the preadmission environment? Yes * Has this patient been hospitalized within the prior 30 days at any hospital? No Patient Name: EMETERIO MACDONALD Page [id number] at 1559 All edits/amendments must be made on the electronic document DICTATION DATE: 02/16/191557 JIGGER MACHINE OPERATOR: [place] 02/16/191557 RPT#: [id number] DC DATE:02/16/19 STATUS: DIS IN [facility] [address] [place] [address] END OF REPORT
--- NOTE | 2019-02-17 14:07 | CN ---
PATIENT NAME:EMETERIO CHANCE MEDICAL RECORD: [id number] : [birth year] LOCATION:D. D.1205 ADMIT DATE: 02/14/19 ACCOUNT: [id number] CONSULTING PHYSICIAN: BRODIE WOODRUFF MD REFERRING PHYSICIAN: BLANCA HUMPHRIES MD DATE OF CONSULTATION: 02/14/2019 CARDIOLOGY CONSULTATION DIAGNOSES: 1. Chronic atrial fibrillation. 2. Hypertension. 3. Chronic obstructive pulmonary disease. 4. Shortness of breath, dyspnea on exertion. HISTORY OF PRESENT ILLNESS: Mrs. Chance presents with shortness of breath, dyspnea on exertion, COPD exacerbation. She did not have any chest pain or chest discomfort. She has a history of atrial fibrillation. This is chronic. She is on diltiazem and metoprolol and digoxin for rate control. The rate has been well controlled with the atrial fibrillation. Her troponins are normal. EKG is with no ST-T abnormalities. PHYSICAL EXAMINATION: CONSTITUTIONAL/GENERAL APPEARANCE: Well nourished, well developed, appears stated age. EYES: Lids and conjunctivae noninjected. No discharge. No pallor. ENT: Lips within normal limit. No cyanosis. No pallor. NECK: Carotid arteries, bilateral normal upstroke. No bruits. No thrills. No jugular venous pressure or distention. CERVICAL LYMPH NODES: Nontender. Nonenlarged. THYROID: Not enlarged. No nodules. CARDIOVASCULAR: Precordial exam, nondisplaced. No heaves or pericardial thrills. Rate and rhythm, regular. Heart sounds, normal S1, normal S2. No S3, no gallop, no rub. Systolic murmur, not heard. Diastolic murmur, not heard. RESPIRATORY: Respiratory effort, unlabored. Normal curvature. No thoracic deformity. No chest wall tenderness. Percussion, resonant. Auscultation, clear. No wheezes, no rales, no rhonchi. ABDOMEN: Soft, nondistended, nontender. No abdominal pain, no vomiting and normal appetite. MUSCULOSKELETAL: No joint tenderness, normal gait, normal tone. SKIN: Warm and dry. OVERALL IMPRESSION: Shortness of breath, dyspnea on exertion. I do not think this is cardiac in nature. The atrial fibrillation is chronic, well controlled on current medications. TRANSINT:[id number] Voice Confirmation ID: [id number] DOCUMENT ID: [id number] CONSULT REPORT [id number] EMETERIO CHANCE, BRODIE ALLEN at 1407 CC: [id number] DICTATION DATE: 02/14/19 1150 RUBY ON RAILS DEVELOPER: 02/14/19 1228 DIS IN 02/16/19 [place] [id number] [place] [id number]
--- NOTE | 2019-02-17 14:08 | EC ---
PATIENT:EMETERIO MACDONALD DATE OF SERVICE: 02/14/19 SEX: F MEDICAL RECORD: [id number] DATE OF : [birth year] LOCATION:D. D.120 AGE OF PATIENT: 88 ADMISSION DATE: 02/14/19 REFERRING PHYSICIAN: INTERPRETING PHYSICIAN: BRODIE LANGSTON MD ECHOCARDIOGRAM REPORT ECHO CHARGES 4 ECHO COMPLETE Date: 02/14/19 CLINICAL DIAGNOSIS: SOB/CAD/AFIB ECHOCARDIOGRAPHIC MEASUREMENTS (adult normal given) AC root (d.<3.7cm) 3.6 cm LV Septum d (<1.2 cm> 1.7 cm Valve Excursion 1.1 cm LV Septum (systole) 1.9 cm Left Atria (s.<4.0cm> 4.0 cm LVPW d(<1.2cm) 1.8 cm RV (d.<2.3cm) 4.0 cm LVPW (sytole) 2.0 cm LV diastole(<5.6CM) 3.9 cm MV E-F(>70mm/sec) cm LV systole 2.2 cm LVOT Diameter 1.7 cm MV exc.(>10mm) 1.4 cm Est.ejection fraction (50-75%) % DOPPLER: LVIT cm/sec A cm/sec E 136.0 cm/sec LA cm/sec RVSP 57 mmHg LVOT 110 cm/sec AOP1/2T m/s Asc. Ao 168 cm/sec RVOT 75 cm/sec RA cm/sec PA 111 cm/sec AV Gradient Peak 11.30mmHg AV Mean 6.15 mmHg AV Area 1.5 cm MV Gradient Peak 9.35 mmHg MV Mean 2.63 mmHg MV Area cm COMMENTS: Database Architect: 2 ROSAMARIA VIVEROS Statistical Secretary: 1 Dr. Langston TAPE# PACS Pericardial Effusion N DATE OF SERVICE: FINDINGS: 1. Left ventricular chamber size is within normal limits. Left ventricular systolic function is normal. Overall ejection fraction estimated at 55% to 60%. 2. Left atrium is upper limits of normal at 4.0 cm. Right atrium and right ventricular chamber sizes are mildly dilated. 3. Valvular structures have normal structure and motion. 4. Doppler interrogation reveals mild mitral regurgitation, [id number] tricuspid regurgitation, no other valvular insufficiency or stenosis. Pulmonary ECHOCARDIOGRAM REPORT [id number] EMETERIO MACDONALD systolic pressure is estimated at 57 mmHg. 5. No evidence of pericardial effusion or left ventricular thrombus. TRANSINT:[id number] Voice Confirmation ID: [id number] DOCUMENT ID: [id number] BRODIE LANGSTON MD at 1408 CC: [id number] DICTATION DATE: 02/15/19 1553 BUSINESS INTELLIGENCE ADMINISTRATOR: 02/16/19 0054 DIS IN 02/16/19 [place] [id number] [place] [id number]
== END 2019-02-16 15:31 | disposition home or self-care (01) | DRG 291 ==
LOC: D.ER 22:08 → D.MS 23:23 → OBSVTIME 23:23 → D.M3 02-14 18:08 → D.MS 02-14 18:08 → D.M3 02-15 07:12
PROVIDERS: Family Medicine; ADMIT Internal Medicine Nephrology; ATTEND Internal Medicine Nephrology
DX: I11.0 Hypertensive heart disease with heart failure (principal); I50.31 Acute diastolic (congestive) heart failure; J44.1 Chronic obstructive pulmonary disease with (acute) exacerbation; I48.20 Chronic atrial fibrillation, unspecified; J96.11 Chronic respiratory failure with hypoxia; I25.10 Atherosclerotic heart disease of native coronary artery without angina pectoris

== ENCOUNTER → 2019-02-17 22:00 | Outpatient (CLI) | payer MEDICARE, BC ==
[2019-02-15 13:53] VITALS: BMI 24.8
[~2019-02-17 22:00] MED LIST changes: +CIPRO500 MG PO
== END | disposition home or self-care (01) ==
LOC: D.LABREF 22:00
PROVIDERS: ATTEND Urology
DX: R31.9 Hematuria, unspecified (principal)

== ENCOUNTER 2019-02-23 06:44 | Day surgery (SDC) | payer MEDICARE, BC ==
[~2019-02-23] VITALS: Ht 162.6 cm; Wt 63.5 kg
[2019-02-23 07:11] LABS: BASOPHILS 0.2 % (0-2); EOSINOPHILS 3.5 % (0-7); HEMATOCRIT 36.6 % (36.0-48.0); HEMOGLOBIN 11.7 g/dL (12-16); IMMATURE GRANULOCYTES 0.2 % (0-5); LYMPHOCYTES 15.2 % (15-50); MCH 27.5 pg (26.0-34.0); MCV 85.9 fL (80.0-100.0); MEAN PLATELET VOLUME 9.4 fL (7.4-10.4); MONOCYTES 6.7 % (2-11); NEUTROPHILS 74.2 % (40-80); PLATELET COUNT 201 10x3/uL (130-400); RBC 4.26 10x6/uL (4.00-5.40); RDW 15.6 % (11.5-14.5); WBC 5.9 10x3/uL (4.8-10.8)
[2019-02-23 07:17] LABS: ANION GAP 8.9 mmol/L (8-16); CARBON DIOXIDE 32.8 mmol/L (21.0-32.0); POTASSIUM - SERUM 3.7 mmol/L (3.5-5.1)
[2019-02-23 07:19] LABS: APTT 32.2 SECONDS (22.8-39.4); INR 1.14 (0.85-1.17); PROTIME 14.1 SECONDS (11.6-15.0)
[2019-02-23 08:02] VITALS: BP 142/70; Ht 162.6 cm; Wt 63.5 kg
--- NOTE | 2019-02-23 11:05 | OP ---
PATIENT NAME: EMETERIO MACDONALD MEDICAL RECORD: [id number] :[birth year] LOCATION:DRebaOPS ADMISSION DATE: SURGEON: PANCHO DOYLE MD DATE OF OPERATION: 02/23/2019 SURGEON: Pancho Doyle MD ANESTHESIA: TIVA by Sonu Yan CRNA. DIAGNOSIS: History of bladder cancer. PROCEDURE: Cystoscopy. FINDINGS: Atrophic vaginitis with vaginal stenosis. Single ureteral orifices bilaterally with no bladder tumors. CLINICAL HISTORY: This is an 88-year-old female, who has a history of bladder cancer, which was resected. 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 She then had a 6-week course of gemcitabine intravesical treatment by Dr. Mendes. She comes now for surveillance cystoscopy. She was given Ance[employer] weight loss sales consultant to the OR. DESCRIPTION OF PROCEDURE: The patient was given IV sedation. She was then placed into lithotomy position and prepped and draped. There is quite severe atrophic vaginitis and when she was being prepped, she already started to bleed from the thinness of the skin. A 17-Armenian cystoscope with 30-degree lens was used for visualization. No bladder tumors were seen. The bladder was emptied through the scope sheath and then the scope was removed. I will see her back in 6 months to arrange for another surveillance cystoscopy at that time. TRANSINT:[id number] Voice Confirmation ID: [id number] DOCUMENT ID: [id number] PANCHO DOYLE MD at 1105 CC: [id number] DICTATION DATE: 02/23/19 0947 MILK DRYING MACHINE OPERATOR: 02/23/19 1000 [facility] [address] [place] [id number]
--- NOTE | 2019-02-23 11:06 | NUR ---
1105 DRESSED, AWAKE & ALERT SITTING UP ON SIDE OF BED. GIVEN DISCHARGE INFORMATION INCLUDING: MED REC, RTC APPT., [facility] D/C INSTRUCTIONS & POST CYSTOSCOPY D/C INSTRUCTIONS. PT VOICED UNDERSTANDING. TO PRIVATE CAR PER WHEELCHAIR BY STAFF. HOME WITH DAUGHTER, NAE GLOVER. Terry ALEXANDER R.N.
== END 2019-02-23 11:05 | disposition home or self-care (01) ==
LOC: D.OPS 06:44 → D.PAN 09:00 → D.OPS 09:00
PROVIDERS: Anesthesiology; ATTEND Urology
DX: Z85.51 Personal history of malignant neoplasm of bladder (principal); N76.0 Acute vaginitis; N89.5 Stricture and atresia of vagina

== ENCOUNTER → 2019-04-26 12:32 | Outpatient (CLI) | payer MEDICARE, BC ==
[2019-02-23 08:02] VITALS: BMI 24.0
== END | disposition home or self-care (01) ==
LOC: D.LAB 12:32 → D.RT 13:00
PROVIDERS: ATTEND Internal Medicine Pulmonary Disease
DX: R93.89 Abnormal findings on diagnostic imaging of other specified body structures (principal); J96.11 Chronic respiratory failure with hypoxia